=== PATIENT | male | born 1970 | race Caucasian/White ===

== ENCOUNTER 2022-09-16 12:53 | Day surgery (SDC) | payer OTHER ==
[~2022-09-16] VITALS: Ht 175.3 cm; Wt 100.0 kg
--- NOTE | ~2022-09-16 | OR ---
[facility] [address], [place] [address] Draft DATE OF OPERATION: 09/16/2022 SURGEON: Tereso Ureña MD PREOPERATIVE DIAGNOSES: 1. 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 2. Colon screening. POSTOPERATIVE DIAGNOSES: 1. Hiatal hernia with mild distal esophagitis; no obvious Babb's at this time. 2. Colonic diverticulosis. 3. Ileocecal valve hypertrophy (biopsy). PROCEDURE: 1. Esophagogastroduodenoscopy with biopsy. 2. Total colonoscopy to cecum with biopsy of ileocecal valve. ANESTHESIA: Intravenous sedation; fentanyl 150 mcg and Versed 6 mg. INDICATION: This 51-year-old white man is a vaca from the [place], [place] area. He is a patient of Dr. Marcos Boss. He last underwent colonoscopy greater than 14 years ago and colon screening is recommended at this time. He has had no bleeding, diarrhea or constipation and no family history of colon cancer that he is aware of. The patient additionally has occasions of reflux. He does take Protonix on a routine basis. He has had dysphagia to swallowing of bread and had esophageal dilation greater than 10 years ago he says. He has no hematemesis or weight loss. He is admitted at this time to undergo upper endoscopy and colonoscopy. He understands the risk of bleeding, infection, and perforation. FINDINGS: Upper endoscopy showed no evidence of obvious stricture or neoplasm. Biopsies of the middle esophagus and distal esophagus were undertaken to assess for eosinophilic esophagitis. He did have a small to moderate size hiatal hernia and mild distal esophagitis, but no obvious Babb's epithelium to my examination at this time. Stomach and duodenum were essentially normal. CLOtest was equivocal at 30 minutes post procedure. PATIENT NAME: OLGA DOWNS OPERATIVE REPORT DATE OF : 68 REPORT #: [id number] PHYSICIAN: TERESO UREÑA MD PCP: MARCOS BOSS MD REPORT IS CONFIDENTIAL AND NOT TO BE RELEASED WITHOUT AUTHORIZATION [facility] [address], [place] [address] Draft On colonoscopy, the prep was quite good. Complete colonoscopy was undertaken of the cecum. He had numerous diverticula of the sigmoid and left colon, but no evidence of other abnormality there. There was mucosal hypertrophy on the ileocecal valve area, it was not distinctly an adenomatous polyp. Narrow band imaging confirmed this. Biopsies were taken of this area of mucosal thickening, though it is unlikely this represents adenomatous change. DESCRIPTION OF PROCEDURE: The patient was brought to the endoscopy suite, given lidocaine hypopharyngeal topical anesthetic. He was given intravenous sedation to the point of slurred speech and nystagmus with full cardiopulmonary monitoring. A bite block was placed. Olympus video upper endoscope was passed in the hypopharynx. The vocal cords appeared reasonably normal. The scope was advanced to the esophagus, throughout its length it appeared normal, although the distal portion had mild inflammation. There was no obvious Babb's at this time and no sign of stricture or neoplasm. The scope was passed to the stomach without problem. Excess gastric juices were suctioned free. Rugal folds appeared normal. The antrum was normal as was its motility. The scope was passed through the pylorus into the duodenal which was normal. Biopsies were obtained to assess for celiac disease. The scope was withdrawn and biopsies then taken of the antrum and more proximal stomach for both VICKEY and pathologic testing. Retroflexed view did confirm a small to moderate-sized hiatal hernia. Scope was straightened and withdrawn. Biopsies were taken of distal esophageal mucosa. Further withdrawal allowed for biopsy of the midesophagus to assess for eosinophilic esophagitis. Further withdrawal of the scope showed no other findings of concern. Plans were then made for colonoscopy. Additional sedation was given. Digital rectal examination was performed which was normal. An Olympus video colonoscope was passed in the rectum and manipulated easily into the sigmoid where numerous diverticula were noted. The scope was passed more proximally and diverticula were noted throughout the left colon and scattered throughout the remaining colon. The scope was ultimately passed into the cecum. Ileocecal valve and cecal area were irrigated. Close inspection of the ileocecal valve showed what may have been hypertrophy or possibly flat adenomatous change. Narrow band imaging did not better clarify this. On that basis, biopsies were taken of the mucosa of the ileocecal valve. The scope was then withdrawn and examination throughout showed no evidence of polyps or cancer, only diverticular changes as was previously noted. Retroflexed view of the rectum was normal. The scope was removed and the patient was taken to the recovery room in good condition. CONCLUDING DIAGNOSES: PATIENT NAME: OLGA DOWNS OPERATIVE REPORT DATE OF : 68 REPORT #: [id number] PHYSICIAN: TERESO UREÑA MD PCP: MARCOS BOSS MD REPORT IS CONFIDENTIAL AND NOT TO BE RELEASED WITHOUT AUTHORIZATION [address] [address] Draft 1. Hiatal hernia with clinical gastroesophageal reflux, but no evidence of Babb epithelium that I could see. Recommend continued use of Protonix 40 mg daily. 2. Diverticulosis of colon without obvious polyp. Mucosal thickening of the ileocecal valve is notable and biopsies are pending. Would recommend high-fiber diet or fiber supplement such as Metamucil or Citrucel on a daily basis. I will review the pathology report. If the ileocecal valve biopsies actually confirm adenomatous change, short interval colonoscopy would be appropriate for complete obliteration. If symptoms are worsening his reflux, I am happy to see him again as needed. We will see him back in the office in six weeks more or less to review his symptoms and pathology reports. He will call us sooner if there are problems. MD SERGO Poe/BYRON /[id number] cc: Marcos Boss MD Copies: MARCOS BOSS MD ~ PATIENT NAME: OLGA DOWNS OPERATIVE REPORT DATE OF : 68 REPORT #: [id number] PHYSICIAN: TERESO UREÑA MD PCP: MARCOS BOSS MD REPORT IS CONFIDENTIAL AND NOT TO BE RELEASED WITHOUT AUTHORIZATION
[~2022-09-16 12:53] MED LIST: ATORVASTATIN CA80 MG PO; METFORMIN HCL500 MG PO; PANTOPRAZOLE SO40 MG PO; TRULICITY0.75 MG/0. SUB-Q; ZESTRIL10 MG PO
--- NOTE | 2022-09-16 14:47 | NUR ---
09/16/22 Rosalio7 Morelia Benedict 1443- PT ARRIVES TO PACU AWAKE AND TALKING. PT REPORTS NO PAIN OR NAUSEA. RESP EVEN AND UNLABORED. OXYGEN SAT HIGH 90'S ON 2L VIA NC. PT FALLS TO SLEEP WHEN NOT BEING TALKED TO.
--- NOTE | 2022-09-18 11:47 | PATH ---
[facility] [address] [place], [place] [address] Signed SPECIMEN(S): A DUODENAL BIOPSY SPECIMEN(S): B ANTRUM BIOPSY SPECIMEN(S): C DISTAL ESOPHAGEAL BIOPSY SPECIMEN(S): D MID ESOPHAGEAL BIOPSY SPECIMEN(S): E ILEOCECAL VALVE MUCOSAL THICKENING SPECIMEN SOURCE: A. DUODENAL BIOPSY B. ANTRUM BIOPSY C. DISTAL ESOPHAGEAL BIOPSY D. MID ESOPHAGEAL BIOPSY E. ILEOCECAL VALVE MUCOSAL THICKENING CLINICAL HISTORY: Pre: Nausea, reflux, dysphagia, follow up colonoscopy. Post: Mild distal esophagitis, hiatal hernia, diverticulosis, mucosal hypertrophy of ileocecal valve. FINAL PATHOLOGIC DIAGNOSIS: A. Duodenal biopsy: - Benign duodenal mucosa, negative for specific diagnostic abnormality. B. Antrum biopsy: - Benign gastric-type mucosa with focal slight chronic inflammation. - Negative for evidence of helicobacter organisms on routine HE stained sections. C. Distal esophageal biopsy: - Benign esophageal and scant glandular mucosa with reactive features. - Negative for specialized intestine metaplasia or dysplasia. - Negative for increased epithelial eosinophils. D. Mid esophageal biopsy: - Benign esophageal mucosa, negative for increased epithelial eosinophils. E. Ileocecal valve mucosal thickening: - Benign small bowel and colonic mucosa, negative for epithelial dysplasia or pathologic inflammation. - Focal slight superficial hyperplastic features (one fragment). [id number] MICROSCOPIC EXAMINATION: Histologic sections of all submitted blocks are examined by light microscopy. These findings, together with the gross examination, support the pathologic diagnosis. PATIENT NAME: OLGA DOWNS MANUEL PATHOLOGY DATE OF : 68 REPORT #: [id number] PHYSICIAN: MIMI PINON PCP: MARCOS CLAYTON MD REPORT IS CONFIDENTIAL AND NOT TO BE RELEASED WITHOUT AUTHORIZATION [facility] [address], [place] [address] Signed GROSS DESCRIPTION: A. The specimen, labeled and designated "Josep, duodenal biopsy," is received in formalin and consists of three mejía soft tissue fragments, ranging from 0.1-0.2 cm. Entirely submitted in (A1). B. The specimen, labeled and designated "Josep, antrum biopsy," is received in formalin and consists of two mejía soft tissue fragments, ranging from 0.1-0.2 cm. Entirely submitted in (B1). C. The specimen, labeled and designated "Josep, distal esophagus biopsy," is received in formalin and consists of two mejía soft tissue fragments, ranging from 0.1-0.2 cm. Entirely submitted in (C1). D. The specimen, labeled and designated "Josep, mid esophagus biopsy," is received in formalin and consists of two mejía soft tissue fragments, ranging from 0.2-0.3 cm. Entirely submitted in (D1). E. The specimen, labeled and designated "Josep, ileocecal valve mucosal thickening biopsy," is received in formalin and consists of five mejía soft tissue fragments, ranging from 0.1-0.2 cm. Entirely submitted in (E1). JS (under the direct supervision of a pathologist) The Gross Description was prepared using a voice recognition system. The report was reviewed for accuracy; however, sound-alike word errors, addition and/or deletions may occur. If there is any question about this report, please contact Client Services. PERFORMING LABORATORY: The technical component was performed by [facility], [address] [place] [id number] (CLIA# [id number]). Professional interpretation was performed by [facility], [address] [place] [address], [place] [address] (CLIA#: [id number]). Diagnostician: Tino Avery MD Pathologist Electronically Signed 09/18/2022 Copies: ~ PATIENT NAME: OLGA DOWNS MANU[facility] PATHOLOGY DATE OF : 68 REPORT #: [id number] PHYSICIAN: MIMI PATHOLOGY PCP: MARCOS CLAYTON MD REPORT IS CONFIDENTIAL AND NOT TO BE RELEASED WITHOUT AUTHORIZATION
== END 2022-09-16 15:35 | disposition home or self-care (01) ==
LOC: OPS 12:53 → DS 14:00 → OPS 14:00
PROVIDERS: ATTEND Surgery
PROC: 0DBC8ZX Excision of Ileocecal Valve, Via Natural or Artificial Opening Endoscopic, Diagnostic (ICD-10-PCS; 2022-09-16)
PROC: 0DB38ZX Excision of Lower Esophagus, Via Natural or Artificial Opening Endoscopic, Diagnostic (ICD-10-PCS; principal; 2022-09-16 14:00)
PROC: 0DB68ZX Excision of Stomach, Via Natural or Artificial Opening Endoscopic, Diagnostic (ICD-10-PCS; 2022-09-16 14:00)
DX: Z12.11 Encounter for screening for malignant neoplasm of colon (principal); Z87.19 Personal history of other diseases of the digestive system; R13.19 Other dysphagia; E11.9 Type 2 diabetes mellitus without complications; Z79.84 Long term (current) use of oral hypoglycemic drugs; K44.9 Diaphragmatic hernia without obstruction or gangrene; K21.00 Gastro-esophageal reflux disease with esophagitis, without bleeding; K57.30 Diverticulosis of large intestine without perforation or abscess without bleeding
CPT/HCPCS: 99153; G0500; J2250; J3010; J7121